=== PATIENT | male | born 1970 | race Caucasian/White ===

== ENCOUNTER 2019-02-28 13:57 | Emergency (ER) | payer BC, OTHER ==
--- NOTE | 2019-02-28 14:01 | EDPHY ---
HPI/HX/ROS/PE/MDM Narrative: CHIEF COMPLAINT: Chest tightness HPI: This patient is a healthy 49-year-old male. He presents today with left-sided chest tightness which began around 8:00am this morning while he was working on his computer. The discomfort is increased with deep inspiration. He denies any recent falls, trauma, heavy lifting, or other unusual activities. He has had similar episodes intermittently over the past three months, but has not sought medical evaluation for this before. Today, his encouraged him to seek evaluation. He denies any fever, nausea, headache, vomiting, diarrhea, or other associated symptoms. No recent cough or cold symptoms. He notes that his grandfather had an AZ at age 51. REVIEW OF SYSTEMS: A comprehensive 10 system review of systems is otherwise negative aside from elements mentioned in the history of present illness and medical decision making. PMH: Denies. Family history of AZ in grandfather at age 51. SOCIAL HISTORY: . Employed. Lives in [place]. PHYSICAL EXAM: General:Patient is alert, in no acute distress. ENT:Eyes are normal to inspection. ENT inspection normal. Neck: Normal inspection. Full range of motion. Respiratory:No respiratory distress. Breath sounds normal bilaterally. Cardiovascular: Regular rate and rhythm. Strong peripheral pulses. Normal cap refill. Abdomen:The abdomen is nontender to palpation. There are no peritoneal signs. There are normal bowel sounds. Back: Normal to inspection. No tenderness to palpation. Skin: Normal color. No rash. Warm and dry. Extremities: Normal appearance. Full range of motion. Neuro: Oriented x3. Normal motor function. Normal sensory function. ED Course: 48 y/o male presents with left-sided chest tightness which began at rest, ongoing for the past six hours and increased with deep inspiration. Exam is unremarkable. Plan for EKG, chest x-ray, labs including CBC, chemistries, troponin, d-dimer. EKG was ordered and interpreted by myself. Please see Flu[facility] system for official reading. Sinus rhythm, no evidence of ischemia. Reviewed laboratory studies. These are completely unremarkable. Troponin and d- dimer negative. Chest x-ray is negative for acute processes. Reassessed patient. Discussed laboratory and imaging results. Cardiac workup thus far is negative. Reviewed shared decision making regarding the patient's personal risk for cardiac compilations. Patient's HEART score is 2, for age and family history. I offered admission for further workup and observation, but the patient declines. He will follow up with cardiology in the outpatient setting. Plan to discharge home in good condition. Follow up and return precautions discussed. The patient is comfortable with this plan. - Data Points Imaging Results: Imaging Impressions Chest X-Ray 02/28/19 14:08 Impression: 1. No visible etiology for the patient's pain. 2. Indeterminate sclerosis in the left sixth rib statistically likely to represent a bone island. Imaging: I viewed and interpreted images myself Laboratory Results: Laboratory Results 02/28/19 14:05 02/28/19 14:05 02/28/19 02/28/19 02/28/19 14:11 14:05 14:05 WBC RBC Hgb Hct MCV MCH MCHC RDW Plt Count MPV Neut % (Auto) Lymph % (Auto) [place] % (Auto) Eos % (Auto) Baso % (Auto) Nucleat RBC Rel Count Absolute Neuts (auto) Absolute Lymphs (auto) Absolute Monos (auto) Absolute Eos (auto) Absolute Basos (auto) Absolute Nucleated RBC Immature Gran % Immature Gran # D-Dimer < 0.27 ug/mLFEU ug/mLFEU (0.00-0.50) Sodium 139 mEq/L mEq/L (135-145) Potassium 3.9 mEq/L mEq/L (3.5-5.2) Chloride 102 mEq/L mEq/L (97-110) Carbon Dioxide 26 mEq/l mEq/l (22-31) Anion Gap 11 mEq/L mEq/L (6-14) BUN 13 mg/dL mg/dL (7-23) Creatinine 0.9 mg/dL mg/dL (0.7-1.3) Estimated GFR > 60 Glucose 95 mg/dL mg/dL (70-100) Calcium 9.4 mg/dL mg/dL (8.5-10.4) POC Troponin I 0.00 ng/mL ng/mL (0.00-0.08) 02/28/19 14:05 WBC 6.14 10^3/uL 10^3/uL (3.80-9.50) RBC 4.90 10^6/uL 10^6/uL (4.40-6.38) Hgb 15.6 g/dL g/dL (13.7-17.5) Hct 45.3 % % (40.0-51.0) MCV 92.4 fL fL (81.5-99.8) MCH 31.8 pg pg (27.9-34.1) MCHC 34.4 g/dL g/dL (32.4-36.7) RDW 11.9 % % (11.5-15.2) Plt Count 217 10^3/uL 10^3/uL (150-400) MPV 9.5 fL fL (8.7-11.7) Neut % (Auto) 62.5 % % (39.3-74.2) Lymph % (Auto) 26.2 % % (15.0-45.0) [place] % (Auto) 6.4 % % (4.5-13.0) Eos % (Auto) 3.9 % % (0.6-7.6) Baso % (Auto) 0.7 % % (0.3-1.7) Nucleat RBC Rel Count 0.0 % % (0.0-0.2) Absolute Neuts (auto) 3.84 10^3/uL 10^3/uL (1.70-6.50) Absolute Lymphs (auto) 1.61 10^3/uL 10^3/uL (1.00-3.00) Absolute Monos (auto) 0.39 10^3/uL 10^3/uL (0.30-0.80) Absolute Eos (auto) 0.24 10^3/uL 10^3/uL (0.03-0.40) Absolute Basos (auto) 0.04 10^3/uL 10^3/uL (0.02-0.10) Absolute Nucleated RBC 0.00 10^3/uL 10^3/uL (0-0.01) Immature Gran % 0.3 % % (0.0-1.1) Immature Gran # 0.02 10^3/uL 10^3/uL (0.00-0.10) D-Dimer Sodium Potassium Chloride Carbon Dioxide Anion Gap BUN Creatinine Estimated GFR Glucose Calcium POC Troponin I Medications Given: Discontinued Medications Sodium Chloride (Ns) 1,000 mls @ 0 mls/hr IV EDNOW ONE; Wide Open PRN Reason: Protocol Stop: 02/28/19 14:09 Last Admin: 02/28/19 14:45 Dose: 1,000 mls Point of Care Test Results: Chemistry 02/28/19 14:11 POC Troponin I 0.00 ng/mL ng/mL (0.00-0.08) General Time Seen by Provider: 02/28/19 14:00 Initial Vital Signs: Initial Vital Signs Temperature (C) 36.8 C 02/28/19 14:02 Heart Rate 73 02/28/19 14:02 Respiratory Rate 16 02/28/19 14:02 Blood Pressure 139/90 H 02/28/19 14:02 O2 Sat (%) 100 02/28/19 14:02 O2 Delivery Mode Room Air Allergies/Adverse Reactions: No Known Allergies Allergy (Unverified 02/28/19 14:02) Home Medications: Medication Instructions Recorded NK [No Known Home Meds] 02/28/19 Departure - Departure Disposition: Home, Routine, Self-Care Clinical Impression: Pleuritic chest pain Condition: Good Instructions: Chest Pain (ED) Additional Instructions: Follow-up with your primary doctor within 2-3 days. Return to the Emergency Department for fever, chest pain, shortness of breath, increasing pain or other worsening of condition. Follow up with a circulating process inspector for further testing, as soon as possible, within one week. As we discussed, it is impossible to fully rule out heart disease as the cause of your chest pain in the emergency department. We would be happy to reevaluate you and observe you in the hospital at any time. Referrals: Nadia Shepherd PA [Physician [facility]] - As per Instructions Teetee Meza MD [Medical Doctor] - As per Instructions Report Scribed for: Lb Bal Report Scribed by: Roslyn Linder Date of Report: 02/28/19 Time of Report: 14:00 Physician Review and Approval Statement: Portions of this note were transcribed by an ED scribe. I personally performed the history, physical exam, and medical decision making; and confirm the accuracy of the information in the transcribed note.
[2019-02-28] MEDS ORDERED: NS 1,000 ML IV ONE (14:08)
[2019-02-28 14:20] LABS: PLATELET COUNT 217 10^3/uL (150-400)
[2019-02-28 15:39] VITALS: BP 112/82
--- NOTE | 2019-02-28 20:01 | CPEKG ---
Test Reason : OPEN Blood Pressure : / mmHG Vent. Rate : 066 BPM Atrial Rate : 067 BPM P-R Int : 163 ms QRS Dur : 103 ms QT Int : 402 ms P-R-T Axes : 079 089 053 degrees QTc Int : 422 ms Sinus rhythm Confirmed by Lb Bal ([id number] on 02/28/2019 8:01:23 PM Referred By: Lb Bal Confirmed By:Lb Bal
== END 2019-02-28 15:38 | disposition home or self-care (01) ==
DX: R07.89 Other chest pain (principal); E86.9 Volume depletion, unspecified
CPT/HCPCS: 84484-ER